=== PATIENT | female | born 1985 | race Caucasian/White ===

== ENCOUNTER → 2017-05-07 | Outpatient (CLI) | payer BC ==
--- NOTE | 2017-05-07 11:10 | DIAGNOSTIC IMAGING REPORT ---
Arterial Doppler upper extremities ART DOP DUP UPPER EXT BILAT CLINICAL HISTORY: BILATERAL ACUTE SHOULDER PAIN pain. Neuropathy. TECHNIQUE: Arterial Doppler COMPARISON STUDY: None FINDINGS: Waveforms are triphasic throughout. No evidence for positional compromise of arterial flow. Arterial vascular flow characteristics are unremarkable IMPRESSION: Normal study Electronically signed by: Young Valadez M.D. 05/07/2017 11:09 AM Dictated Date/Time: 05/07/2017 11:08 AM
== END | disposition home or self-care (01) ==
LOC: C.ULTR 09:23
PROVIDERS: ATTEND Orthopaedic Surgery Sports Medicine
DX: M25.512 Pain in left shoulder (principal); M25.511 Pain in right shoulder